=== PATIENT | female | born 1965 | race Caucasian/White ===

== ENCOUNTER 2016-09-23 15:07 | Outpatient (CLI) | payer OTHER ==
[~2016-09-23] VITALS: Ht 154.9 cm; Wt 67.7 kg
[2016-09-23 15:21] VITALS: Ht 154.9 cm; Wt 67.7 kg
[2016-09-23] MEDS ORDERED: METF500T4 PO (15:21)
[2016-09-23] MEDS ORDERED: ALBU8.5H3 INH (15:21)
[2016-09-23] MEDS ORDERED: OMEP40CA6 PO (15:21)
[2016-09-23] MEDS ORDERED: ASPI-664 PO (15:21)
[2016-09-23] MEDS ORDERED: FER325 PO (15:21)
[2016-09-23] MEDS ORDERED: ATOR40TA68 PO (15:21)
[2016-09-23 15:22] VITALS: BP 115/61; PULSE 94; RESP 20
--- NOTE | 2016-09-23 15:47 | PN ---
Date/Time of Note Date/Time of Note DATE: 09/23/16 TIME: 15:37 Outpatient Progress Note Chief Complaint CVA/diabetes/hypertension/hyperlipidemia/asthma/PUD HPI CVA/patient had recently CVA, patient has numbness on the right side of the face , and right upper extremity weakness, patient also has diplopia, and slight impaired vision, and headache on right side of the head, especially in the frontal area, no difficulty in walking, no seizure, Diabetes/no polydipsia polyuria hypoglycemia, gastroparesis, Hypertension/slight headache on right side of the head, and had slight dizziness , no blood in the urine, no nausea vomiting, Hyperlipidemia/no xanthoma, on medication, side effect, Asthma/patient has cough, moderate wheezing, patient is only taking inhaler to the 3 times a day, no hemoptysis, no fever or chill, PUD/no nausea vomiting, hematemesis melena, Review of Systems Const: No Fever, no chills, no Wt. loss, no Fatigue, normal appetite, no diaphoresis. Eyes: No pain, no discharge, no redness, no visual change, no foreign body. ENT: No pain, no bleeding, no congestion, no sore throat, no dysphagia, no discharge or rhinitis. Lymph: No adenopathy, no tender nodes, no lymphedema. Resp: Minimal SOB maybe on exertion,, mild to moderate cough, no sputum, moderate wheezing, no chest pain. CV: No chest pain, no palpitaions, no FARAH, no PND, no edema. GI: Normal appetite, no pain, no nausea, no vomiting, no diarrhea, no blood, no constipation. : No frequency, no urgency, no dysuria, no hematuria, no flank pain, no discharge, no bleeding. Musc: no back pain, no neck pain, no knee pain, no restricted ROM. Skin: No rash, no skin lesions, no erythema, no laceration, no bruising, no pruritus. Neuro: Mild to moderate NOLASCO, no dizziness, no syncope, no seizure, minimal weakness of right hand, and also has slurred speech, and has diplopia,. Endo: No polyuria, no polydypsia, no dry-skin, no temp-intolerance. Psych: No hallucinations, no depression, no anxiety, no suicidal ideation. Ext: No edema, no pain, no ulcer, minimal weakness of right upper extremity weakness,. Physical Exam Vital Signs Date Time Temp Pulse Resp B/P Pulse Ox O2 Delivery O2 Flow Rate FiO2 09/23/16 15:22 97.5 94 20 115/61 Room Air General Appearance: A 51 year-oldfemalwho appears well-developed, well-nourished , in no acute distress HEENT:Head normocephalic, atraumatic. Pupils equal, round, reactive to light and accommodate. Sclerae are no jaundice. Nasal turbinates pink without erythema or nasal discharge. Mucous membranes pink and moist without lesions. Oropharynx clear without any exudate or discharge NECK:Supple. Trachea midline, No thyromegaly, No cervical lymphadenopathy, No mass, No carotid bruits, No JVD, Carotid pulses 2+ bilaterally PULMONARY:Clear to auscultaion bilaterally, No retractions, Chest expansion symmetric bilaterally, no rales, Laura few inspiratory and expiratory ronchi, no dulness on percussion CARDIAC:Normal SI and S2, Regular rate and rythm, no murmur, gallop, or rub GASTROINTESTINAL:Abdomen is soft, non-tender, Non Rigid, No distention, Positive bowel sounds x4 quadrants, Liver normal SKIN:Warm, dry, no rash, no bruise, no echmosis EXTREMITIES:Bilateral lower extremities normal, no edema, no phlabitus, pulse palpable, no contracture minimal right upper extremity weakness, MUSCULOSKELETAL:Spine Normal, Non-tender, Normal range of motion, No swelling, no deformity, no clubbing, or cyanosis, the patient has no edema to bilateral lower extremities, dorsalis pedis pulses palpable bilaterally NEUROLOGIC:The patient is awake, alert, oriented, responding to yes/no questions appropriately, moving all extremities, cranial nerve intact, normal strenght, normal power, normal coordination, on the left side, right-sided right upper exudate in minimal weakness, normal gait Allergies Coded Allergies: guaifenesin (Verified Allergy, Intermediate, 09/23/16) PMH Diabetes/hypertension/hyperlipidemia/asthma/PUD/anemia, patient also had a blood transfusion, history of hypotension, Appendectomy/upper GI bleed/anoscopy and laparoscopic cholecystectomy, Social Hx Patient used to smoke, no drinking, no drugs, Family Hx Mother had high blood pressure, arthritis, father had diabetes, stroke, history of drug abuse, kidney problem, high blood pressure, and heart disease, and early ,/brother has diabetes, heart problem, and kidney problem, Assessment/Plan Impression CVA/diabetes/hypertension/hyperlipidemia/asthma/PUD/anemia Plan Continue all medication summary care, patient does not have pain medication, Patient education done about diabetes hypertension hyperlipidemia asthma etc., patient also educated about the CVA, discussed with the daughter also, [place] 5/325 one by mouth 3 times a day when necessary for pain #20 Patient encouraged to follow with the primary care physician, Patient advised to increase inhaler to 4-6 times a day, as patient is still wheezing, Patient very high risk for repeated admission, patient has not received all the medication, Medications Home Meds Reported Medications Omeprazole* (Omeprazole*) 40 Mg Capsule.dr, 40 MG PO DAILY, #30 CAP 09/23/16 Metformin* (Glucophage*) 500 Mg Tab, 500 MG PO WITH BREAKFAST, #30 TAB 09/23/16 Ferrous Sulfate* (Ferrous Sulfate*) 325 Mg Tabec, 325 MG PO DAILY, TAB 09/23/16 Atorvastatin* (Atorvastatin*) 40 Mg Tablet, 40 MG PO QHS, #30 TAB 09/23/16 Aspirin (Low Dose Aspirin) 81 Mg Tablet.dr, 81 MG PO DAILY, #30 TAB 09/23/16 Albuterol Sulfate* (Proair HFA*) 8.5 Gm Hfa.aer.ad, 2 PUFF INH Q4H Y for WHEEZING AND SOB, #1 INHALER 09/23/16 TAMI FLETCHER MD Sep 23, 2016 15:47
== END 2016-09-23 16:46 | disposition home or self-care (01) ==
LOC: DCC 15:07
PROVIDERS: ATTEND Internal Medicine
DX: I63.9 Cerebral infarction, unspecified (principal); E11.9 Type 2 diabetes mellitus without complications; I10 Essential (primary) hypertension; E78.5 Hyperlipidemia, unspecified; J45.909 Unspecified asthma, uncomplicated; K27.9 Peptic ulcer, site unspecified, unspecified as acute or chronic, without hemorrhage or perforation; D64.9 Anemia, unspecified
CPT/HCPCS: G0463